=== PATIENT | female | born 1960 | race Caucasian/White ===

== ENCOUNTER → 2020-11-06 | Outpatient (CLI) | payer BC, OTHER | END | disposition home or self-care (01) | LOC: ROC 09:12 | PROVIDERS: ATTEND Radiology Radiation Oncology | DX: C50.411 Malignant neoplasm of upper-outer quadrant of right female breast (principal); Z17.0 Estrogen receptor positive status [ER+] | CPT/HCPCS: 99214; G0463 ==

== ENCOUNTER 2020-12-11 12:31 | Outpatient (CLI) | payer OTHER ==
[~2020-12-11 12:31] MED LIST: ASPI81TA45 PO; CYAN100014 PO; FLEC50TA25 PO; GING250C PO; LACT1CAP45 PO; TRYP500C PO; [UNRECOGNIZED DRUG - OTHER] PO; [UNRECOGNIZED DRUG - OTHER] PO
== END 2020-12-11 23:59 | disposition home or self-care (01) ==
LOC: RAD 12:31 → MERGE 13:00 → RAD 23:59
PROVIDERS: ATTEND Internal Medicine Hematology & Oncology
DX: C50.919 Malignant neoplasm of unspecified site of unspecified female breast (principal)
CPT/HCPCS: 36573; C1751